=== PATIENT | female | born 1935 | race Caucasian/White ===

== ENCOUNTER 2023-12-29 13:35 | Emergency (ER) | payer MEDICARE ==
[2023-12-29 13:52] VITALS: TEMP 98
--- NOTE | 2023-12-29 13:53 | ED ---
Fall HPI - General Source: patient, RN notes reviewed Mode of arrival: wheelchair Limitations: no limitations <Tarun Rubio - Last Filed: 12/29/23 13:52> - General Source: patient, RN notes reviewed Mode of arrival: wheelchair Limitations: no limitations - History of Present Illness MD Complaint: fall <Sanaz Zhang - Last Filed: 12/29/23 21:52> - General Chief Complaint: Fall Stated Complaint: fall/head injury/on blood thinners Time Seen by Provider: 12/29/23 13:52 - History of Present Illness Initial Comments: 88-year-old female presents emergency department complaint of a head injury. Patient states she is on blood thinners. Patient states she fell forward striking her head. Patient has a hematoma. No loss conscious. Patient denies any neck pain no other extremity injuries. (Tarun Rubio) This is an 88-year-old female who presents to the emergency department for a head injury. States that she tripped going up a curb, and fell face first, hitting her head. Reports a bump to the side of the front of her head. Denies any loss consciousness. She is on warfarin. Denies sustaining any other injuries. Denies any nausea or headaches at this time. (Sanaz Zhang) - Related Data Allergies Allergy/AdvReac Type Severity Reaction Status Date / Time No Known Allergies Allergy Verified 12/29/23 13:48 Review of Systems ROS Other: All systems not noted in ROS Statement are negative. <Tarun Rubio - Last Filed: 12/29/23 13:52> ROS Other: All systems not noted in ROS Statement are negative. <Sanaz Zhang - Last Filed: 12/29/23 21:52> ROS Statement: Those systems with pertinent positive or pertinent negative responses have been documented in the HPI. Past Medical History Past Medical History: Coronary Artery Disease (CAD), CVA/TIA, Diabetes Mellitus, Hypertension History of Any Multi-Drug Resistant Organisms: None Reported Past Surgical History: No Surgical Hx Reported Smoking Status: Never smoker Past Alcohol Use History: None Reported Past Drug Use History: None Reported <Tarun Rubio - Last Filed: 12/29/23 13:52> General Exam Limitations: no limitations <Tarun Rubio - Last Filed: 12/29/23 13:52> Limitations: no limitations General appearance: alert, in no apparent distress Head exam: Present: other (Hematoma to the right side of the forehead) Respiratory exam: Present: normal lung sounds bilaterally. Absent: respiratory distress, wheezes, rales, rhonchi, stridor Cardiovascular Exam: Present: regular rate, normal rhythm, normal heart sounds. Absent: systolic murmur, diastolic murmur, rubs, gallop, clicks Neurological exam: Present: alert, oriented X3, CN II-XII intact Psychiatric exam: Present: normal affect, normal mood <Sanaz Zhang - Last Filed: 12/29/23 21:52> - General Exam Comments Initial Comments: Visual Physical Exam Vital signs reviewed General: Well-appearing, nontoxic, no acute distress. Head: Normocephalic, hematoma noted ic Eyes: PERRLA, EOMI ENT: Airway patent Chest: Nonlabored breathing Skin: No visual rash, normal skin tone Neuro: Alert and oriented 3 Musculoskeletal: No gross abnormalities (Tarun Rubio) Course Vital Signs 12/29/23 12/29/23 13:46 16:17 Temperature 98 F Pulse Rate 83 62 Respiratory 20 16 Rate Blood Pressure 199/45 217/79 O2 Sat by Pulse 95 98 Oximetry Medical Decision Making <Tarun Rubio - Last Filed: 12/29/23 13:52> - Radiology Data Radiology results: report reviewed, image reviewed <Sanaz Zhang - Last Filed: 12/29/23 21:52> - Medical Decision Making I completed the quick note portion of this chart signed Tarun Rubio PA-C (Tarun Rubio) This is an 88-year-old female who presents to the emergency department for a head injury. Was pt. sent in by a medical professional or institution? @ -No Did you speak to anyone other than the patient for history? @ -No Did you review nursing and triage notes? @ -Yes, and I agree, it is accurate with regards to the patient's symptoms. Were old charts reviewed? @ -No Differential Diagnosis? @ -Differential Diagnosis Head Injury: Contusion, hematoma, intracranial hemorrhage, skull fracture, whiplash, concussion, this is not meant to be an all-inclusive list. EKG interpreted by me (3pts min.)? @ -Not obtained X-rays interpreted by me (1pt min.)? @ -Not obtained CT interpreted by me (1pt min.)? @ -Computed tomography scan of the brain and c-spine obtained. My interpretation identifies no evidence of an acute intracranial hemorrhage, skull fracture, or cervical spine fracture. U/S interpreted by me (1pt. min.)? @ -Not obtained What testing was considered but not performed? (CT, X-rays, U/S, labs)? Why? @ -None What meds were considered but not given? Why? @ -None Did you discuss the management of the patient with other professionals? @ -No Did you reconcile home meds? @ -No Was smoking cessation discussed for >3mins.? @ -No Was critical care preformed (if so, how long)? @ -No Were there social determinants of health that impacted care today? How? (Homelessness, low income, unemployed, alcoholism, drug addiction, trans portation, low edu. Level, literacy, decrease access to med. care, long-term, rehab)? @ -No Was there de-escalation of care discussed even if they declined? (Discuss DNR or withdrawal of care, Hospice)? @ -No What co-morbidities impacted this encounter? (DM, HTN, Smoking, COPD, CAD, Cancer, CVA, Hep., AIDS, mental health diagnosis, sleep apnea, morbid obesity)? @ -CAD, Hx CVA, DM, HTN Was patient admitted / discharged? @ -Discharged. Computed tomography scan of the brain and C-spine obtained revealing no acute process. Patient denied the need for any pain medication in the emergency department. Advised Tylenol as needed for pain relief. Patient discharged home in stable condition. Undiagnosed new problem with uncertain prognosis? @ -None Drug Therapy requiring intensive monitoring for toxicity (Heparin, Nitro, Insulin, Cardizem)? @ -None Were any procedures done? @ -None Diagnosis/symptom? @ -Fall, head injury Acute, or Chronic, or Acute on Chronic? @ -Acute Uncomplicated (without systemic symptoms) or Complicated (systemic symptoms)? @ -Uncomplicated Side effects of treatment? @ -None Exacerbation, Progression, or Severe Exacerbation] @ -Not applicable Poses a threat to life or bodily function? @ -No Return precautions reviewed in depth, the patient is instructed to return to the emergency department with any new, worsening, or concerning symptoms. Patient verbalized understanding. This case was discussed in detail with the attending ED physician, Dr. Kwong Presentation, findings, and treatment plan discussed in detail as well. (Sanaz Zhang) Disposition <Tarun Rubio - Last Filed: 12/29/23 13:52> Is patient prescribed a controlled substance at d/c from ED?: No Time of Disposition: 16:09 <Sanaz Zhang - Last Filed: 12/29/23 21:52> Clinical Impression: Fall, Hematoma Disposition: HOME SELF-CARE Instructions (If sedation given, give patient instructions): Fall Prevention for Older Adults (ED), Hematoma (ED) Additional Instructions: Return to the emergency department with any new, worsening, or concerning symptoms. Take Tylenol as needed for pain relief. Follow up with your primary care provider in 1-2 days. Referrals: Raghu Hewitt DO [Primary Care Provider] - 1-2 days
--- NOTE | 2023-12-29 14:49 | CT ---
EXAMINATION TYPE: CT brain cspine wo con DATE OF EXAM: 12/29/2023 COMPARISON: 01/13/2013 HISTORY: Fall, frontal lobe contusion and swelling CT DLP: 1424.8 mGycm, Automated exposure control for dose reduction was used. CONTRAST: Patient injected with mL of . CT of the brain is performed utilizing 3 mm thick sections through the posterior fossa and 3 mm thick sections through the remaining calvarium. Study is performed within 24 hours of arrival to the hospital. No abnormal hyperdensity is present to suggest an acute intracranial hemorrhage. No mass lesion is evident. No acute infarcts are evident. Periventricular white matter hypodensity is present, likely on the ba sis of chronic white matter ischemic changes. This is greater at the right occipital horn lateral barak tricle which was present previously. Old subcortical infarct could be considered. Some subcortical hy podensity may also be in the posterior left frontal lobe. Ventricles and sulci are prominent for the patient age. There is some soft tissue swelling over the left frontal region. Paranasal sinuses and mastoid air cells within the [id number] are clear. IMPRESSIONS: 1. Atrophy with chronic white matter appearing changes. If additional evaluation is required, MRI wou ld be recommended. 2. Soft tissue swelling right frontal region CT cervical spine. COMPARISON: None CT of the cervical spine is performed in the axial plane at 2 mm thick sections. Reconstructed image s in the coronal, and sagittal plane are reviewed on the computer. No acute fractures are evident. 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 Vertebral body alignment is normal. There is loss of disc height C5-6 C6-7. Vertebral body heights are preserved. No spinal canal stenosis is evident. Bilateral foraminal stenosis at C5-6 is present due to uncovertebral joint hypertrophy. IMPRESSION: 1. No acute osseous abnormality cervical spine. 2. Foraminal stenosis bilaterally at C5-6.
[2023-12-29 16:37] VITALS: BP 217/79; PULSE 62; RESP 16
== END 2023-12-29 16:17 | disposition home or self-care (01) ==
LOC: EC 13:35
DX: S00.93XA Contusion of unspecified part of head, initial encounter (principal); E11.9 Type 2 diabetes mellitus without complications; I10 Essential (primary) hypertension; I25.10 Atherosclerotic heart disease of native coronary artery without angina pectoris; W01.0XXA Fall on same level from slipping, tripping and stumbling without subsequent striking against object, initial encounter
CPT/HCPCS: 70450; 72125; 99284

== ENCOUNTER 2024-01-12 23:36 | Emergency (ER) | payer MEDICARE ==
[2024-01-13 00:20] VITALS: TEMP 97.1
--- NOTE | 2024-01-13 00:23 | ED ---
Dizziness HPI - General Source: patient Mode of arrival: EMS Limitations: no limitations <Jey Granados - Last Filed: 01/13/24 00:23> - History of Present Illness MD Complaint: dizziness, difficulty walking -: hour(s) Timing: sudden onset Description: sense of movement, difficulty walking History of Same: No History of Trauma: No Severity: moderate Improves With: remaining still Worsens With: movement Associated Symptoms: other <Reg Bailey - Last Filed: 01/30/24 07:56> - General Chief Complaint: Dizziness Stated Complaint: PREVIOUS HEAD INJURY, DIZZY Time Seen by Provider: 01/13/24 00:22 - History of Present Illness Initial Comments: 88-year-old female presented to the ED with a chief complaint of dizziness. Patient states she was at rest earlier tonight and notes she turned her head started to experience some dizziness. Also notes headache with this as well. (Jey Granados) - Related Data Previous Rx's Medication Instructions Recorded Meclizine [Antivert] 25 mg PO TID PRN #15 tab 01/13/24 Allergies Allergy/AdvReac Type Severity Reaction Status Date / Time No Known Allergies Allergy Verified 12/29/23 13:48 Review of Systems ROS Other: All systems not noted in ROS Statement are negative. <Jey Granados - Last Filed: 01/13/24 00:23> ROS Other: All systems not noted in ROS Statement are negative. Constitutional: Denies: fever, chills Eyes: Denies: eye pain, vision change ENT: Denies: ear pain, epistaxis, congestion Respiratory: Denies: cough, dyspnea Cardiovascular: Denies: chest pain, palpitations, syncope Gastrointestinal: Denies: abdominal pain, vomiting, diarrhea Genitourinary: Denies: dysuria, hematuria Musculoskeletal: Denies: back pain Skin: Denies: rash Neurological: Reports: headache, vertigo. Denies: weakness, numbness, paresthesias, confusion <Reg Bailey - Last Filed: 01/30/24 07:56> ROS Statement: Those systems with pertinent positive or pertinent negative responses have been documented in the HPI. Past Medical History Past Medical History: Coronary Artery Disease (CAD), CVA/TIA, Diabetes Mellitus, Hypertension History of Any Multi-Drug Resistant Organisms: None Reported Past Surgical History: No Surgical Hx Reported Smoking Status: Never smoker Past Alcohol Use History: None Reported Past Drug Use History: None Reported <Jey Granados - Last Filed: 01/13/24 00:23> General Exam Limitations: no limitations <Jey Granados - Last Filed: 01/13/24 00:23> Limitations: no limitations General appearance: alert, in no apparent distress Head exam: Present: atraumatic, normocephalic Eye exam: Present: normal appearance, PERRL, EOMI, nystagmus. Absent: scleral icterus, conjunctival injection ENT exam: Present: normal oropharynx, TM's normal bilaterally Neck exam: Present: normal inspection, full ROM. Absent: meningismus Respiratory exam: Present: normal lung sounds bilaterally. Absent: respiratory distress, wheezes, rales, rhonchi, stridor, accessory muscle use Cardiovascular Exam: Present: regular rate, normal rhythm, normal heart sounds. Absent: systolic murmur, diastolic murmur, rubs, gallop GI/Abdominal exam: Present: soft. Absent: distended, tenderness, guarding, rebound, rigid, mass Extremities exam: Present: normal inspection, normal capillary refill. Absent: pedal edema, calf tenderness Back exam: Present: normal inspection. Absent: CVA tenderness (R), CVA tenderness (L) Neurological exam: Present: alert, oriented X3, CN II-XII intact. Absent: motor sensory deficit Skin exam: Present: warm, dry, intact, normal color. Absent: rash <Rge Bailey - Last Filed: 01/30/24 07:56> - General Exam Comments Initial Comments: Visual Physical Exam Vital signs reviewed General: Well-appearing, nontoxic, no acute distress. Head: Normocephalic, atraumatic Eyes: PERRLA, EOMI ENT: Airway patent Chest: Nonlabored breathing Skin: No visual rash, normal skin tone Neuro: Alert and oriented 3 Musculoskeletal: No gross abnormalities (Jey Granados) Course Vital Signs 01/13/24 01/13/24 01/13/24 00:15 02:49 04:12 Temperature 97.1 F L Pulse Rate 56 L 54 L 57 L Respiratory 16 18 18 Rate Blood Pressure 173/65 200/88 175/75 O2 Sat by Pulse 96 97 97 Oximetry Medical Decision Making <Jey Granados - Last Filed: 01/13/24 00:23> - Lab Data Result diagrams: 01/13/24 01:18 01/13/24 01:18 <Reg Bailey - Last Filed: 01/30/24 07:56> - Medical Decision Making Quicknote portion performed. Signed Jey Granados PA-C (Jey Granados) The patient had CT of the brain that I interpreted as showing some right occipital encephalomalacia. No acute bony injury. No intracranial hemorrhage. The patient had CT angiography of the brain that I interpreted as showing no arterial occlusion Was pt. sent in by a medical professional or institution (, PA, WORD PROCESSING MACHINE OPERATOR, urgent care, hospital, or care home...) When possible be specific @ -[No] Did you speak to anyone other than the patient for history (EMS, parent, family, police, friend...)? What history was obtained from this source @ -[No] Did you review nursing and triage notes (agree or disagree)? Why? @ -[I reviewed and agree with nursing and triage notes] Were old charts reviewed (outside hosp., previous admission, EMS record, old EKG, old radiological studies, urgent care reports/EKG's, care home records)? Report findings @ -[No old charts were reviewed] Differential Diagnosis (chest pain, altered mental status, abdominal pain women, abdominal pain men, vaginal bleeding, weakness, fever, dyspnea, syncope, headache, dizziness, GI bleed, back pain, seizure, CVA, palpatations, mental health, musculoskeletal)? @ -[Differential Dizziness: Benign paroxysmal positional Vertigo, Menieres disease, otitis media, acoustic neuroma, vertebrobasilar insufficiency, cerebellar stroke, encephalitis, hypovolemic, arrhythmia, coronary artery syndrome, anemia, this is not meant to be an all-inclusive list EKG interpreted by me (3pts min.). @ -[I interpreted as above] X-rays interpreted by me (1pt min.). @ -[None done] CT interpreted by me (1pt min.). @ -[I interpreted as above U/S interpreted by me (1pt. min.). @ -[None done] What testing was considered but not performed or refused? (CT, X-rays, U/S, labs)? Why? @ -[None] What meds were considered but not given or refused? Why? @ -[None] Did you discuss the management of the patient with other professionals (professionals i.e. , PA, WORD PROCESSING MACHINE OPERATOR, lab, RT, psych nurse, high school social studies teacher, small arms artillery repairer, teacher, protocol officer, rn case manager hospice)? Give summary @ -[No] Was smoking cessation discussed for >3mins.? @ -[No] Was critical care preformed (if so, how long)? @ -[No] Were there social determinants of health that impacted care today? How? (Homelessness, low income, unemployed, alcoholism, drug addiction, transportation, low edu. Level, literacy, decrease access to med. care, residential, rehab)? @ -[No] Was there de-escalation of care discussed even if they declined (Discuss DNR or withdrawal of care, Hospice)? DNR status @ -[No] What co-morbidities impacted this encounter? (DM, HTN, Smoking, COPD, CAD, Cancer, CVA, ARF, Chemo, Hep., AIDS, mental health diagnosis, sleep apnea, morbid obesity)? @ -[None] Was patient admitted / discharged? Hospital course, mention meds given and route, prescriptions, significant lab abnormalities, going to OR and other pertinent info. @ -[Patient is an 88-year-old woman presenting with acute onset of vertigo. She did have workup that does not show any intracranial mass or arterial obstruction. She is feeling better with medication and would like to go home at this point. We discussed appropriate further care and follow-up as well as return parameters. Undiagnosed new problem with uncertain prognosis? @ -[No] Drug Therapy requiring intensive monitoring for toxicity (Heparin, Nitro, Insulin, Cardizem)? @ -[No] Were any procedures done? @ -[No] Diagnosis/symptom? @ -[Acute vertigo Acute, or Chronic, or Acute on Chronic? @ -[Acute Uncomplicated (without systemic symptoms) or Complicated (systemic symptoms)? @ -[uncomplicated Side effects of treatment? @ -[No] Exacerbation, Progression, or Severe Exacerbation? @ -[No] Poses a threat to life or bodily function? How? (Chest pain, [place], MA, pneumonia, PE, COPD, DKA, ARF, appy, cholecystitis, CVA, Diverticulitis, Homicidal, Suicidal, threat to staff... and all critical care pts) @ -[No] (Reg Bailey) - Lab Data Lab Results 01/13/24 01/13/24 01/13/24 Range/Units 01:18 01:18 01:18 WBC 9.3 (3.8-10.6) k/uL RBC 4.50 (3.80-5.40) m/uL Hgb 13.6 (11.4-16.0) gm/dL Hct 41.5 (34.0-46.0) % MCV 92.1 (80.0-100.0) fL MCH 30.3 (25.0-35.0) pg MCHC 32.9 (31.0-37.0) g/dL RDW 14.1 (11.5-15.5) % Plt Count 194 (150-450) k/uL MPV 9.7 Neutrophils % 65 % Lymphocytes % 23 % Monocytes % 7 % Eosinophils % 3 % Basophils % 0 % Neutrophils # 6.1 (1.3-7.7) k/uL Lymphocytes # 2.1 (1.0-4.8) k/uL Monocytes # 0.7 (0-1.0) k/uL Eosinophils # 0.3 (0-0.7) k/uL Basophils # 0.0 (0-0.2) k/uL PT 26.0 H (10.0-12.5) sec INR 2.6 H (<1.2) APTT 33.5 H (22.0-30.0) sec Sodium 141 (137-145) mmol/L Potassium 4.0 (3.5-5.1) mmol/L Chloride 110 H (98-107) mmol/L Carbon Dioxide 24 (22-30) mmol/L Anion Gap 7 mmol/L BUN 24 H (7-17) mg/dL Creatinine 0.81 (0.52-1.04) mg/dL Est GFR (CKD-EPI)AfAm 76 (>60 ml/min/1.73 sqM) Est GFR (CKD-EPI)NonAf 66 (>60 ml/min/1.73 sqM) Glucose 123 H (74-99) mg/dL Calcium 9.4 (8.4-10.2) mg/dL Magnesium 1.6 (1.6-2.3) mg/dL Total Bilirubin 0.5 (0.2-1.3) mg/dL AST 29 (14-36) U/L ALT 16 (4-34) U/L Alkaline Phosphatase 111 (38-126) U/L Troponin I (0.000-0.034) ng/mL Total Protein 6.6 (6.3-8.2) g/dL Albumin 4.2 (3.5-5.0) g/dL 01/13/24 Range/Units 01:18 WBC (3.8-10.6) k/uL RBC (3.80-5.40) m/uL Hgb (11.4-16.0) gm/dL Hct (34.0-46.0) % MCV (80.0-100.0) fL MCH (25.0-35.0) pg MCHC (31.0-37.0) g/dL RDW (11.5-15.5) % Plt Count (150-450) k/uL MPV Neutrophils % % Lymphocytes % % Monocytes % % Eosinophils % % Basophils % % Neutrophils # (1.3-7.7) k/uL Lymphocytes # (1.0-4.8) k/uL Monocytes # (0-1.0) k/uL Eosinophils # (0-0.7) k/uL Basophils # (0-0.2) k/uL PT (10.0-12.5) sec INR (<1.2) APTT (22.0-30.0) sec Sodium (137-145) mmol/L Potassium (3.5-5.1) mmol/L Chloride (98-107) mmol/L Carbon Dioxide (22-30) mmol/L Anion Gap mmol/L BUN (7-17) mg/dL Creatinine (0.52-1.04) mg/dL Est GFR (CKD-EPI)AfAm (>60 ml/min/1.73 sqM) Est GFR (CKD-EPI)NonAf (>60 ml/min/1.73 sqM) Glucose (74-99) mg/dL Calcium (8.4-10.2) mg/dL Magnesium (1.6-2.3) mg/dL Total Bilirubin (0.2-1.3) mg/dL AST (14-36) U/L ALT (4-34) U/L Alkaline Phosphatase (38-126) U/L Troponin I <0.012 (0.000-0.034) ng/mL Total Protein (6.3-8.2) g/dL Albumin (3.5-5.0) g/dL Disposition <Jey Granados - Last Filed: 01/13/24 00:23> Is patient prescribed a controlled substance at d/c from ED?: No <Reg Bailey - Last Filed: 01/30/24 07:56> Clinical Impression: Vertigo Disposition: HOME SELF-CARE Condition: Good Instructions (If sedation given, give patient instructions): Vertigo (ED) Prescriptions: Meclizine [Antivert] 25 mg PO TID PRN #15 tab PRN Reason: Vertigo Referrals: Raghu Hewitt DO [Primary Care Provider] - 1-2 days
[2024-01-13 01:28] LABS: Basophils % (A) 0 %; Eosinophils # (A) 0.3 k/uL (0-0.7); Eosinophils % (A) 3 %; HCT 41.5 % (34.0-46.0); HGB 13.6 gm/dL (11.4-16.0); Lymphocytes # (A) 2.1 k/uL (1.0-4.8); Lymphocytes % (A) 23 %; MCH 30.3 pg (25.0-35.0); MCHC 32.9 g/dL (31.0-37.0); MCV 92.1 fL (80.0-100.0); Mean Platelet Volume 9.7; Monocytes # (A) 0.7 k/uL (0-1.0); Monocytes % (A) 7 %; Neutrophils # (A) 6.1 k/uL (1.3-7.7); Neutrophils % (A) 65 %; Platelet Count 194 k/uL (150-450); RDW 14.1 % (11.5-15.5); WBC 9.3 k/uL (3.8-10.6)
[2024-01-13 01:48] LABS: ALT 16 U/L (4-34); AST 29 U/L (14-36); African American GFR (CKD) 76 (>60 ml/min/1.73 sqM); Albumin 4.2 g/dL (3.5-5.0); Alkaline Phosphatase 111 U/L (38-126); Anion Gap 7 mmol/L; Blood Urea Nitrogen 24 mg/dL (7-17); Calcium 9.4 mg/dL (8.4-10.2); Carbon Dioxide 24 mmol/L (22-30); Chloride 110 mmol/L (98-107); Glucose 123 mg/dL (74-99); Magnesium 1.6 mg/dL (1.6-2.3); Non-African American GFR(CKD) 66 (>60 ml/min/1.73 sqM); Sodium 141 mmol/L (137-145); Total Bilirubin 0.5 mg/dL (0.2-1.3); Total Protein 6.6 g/dL (6.3-8.2)
[2024-01-13 01:49] LABS: INR 2.6 (<1.2); Partial Thromboplastin Time 33.5 sec (22.0-30.0)
--- NOTE | 2024-01-13 02:36 | CT ---
EXAM: CT Head Without Intravenous Contrast CLINICAL HISTORY: ITS.REASON CT Reason: SANDOVAL, dizziness TECHNIQUE: Axial computed tomography images of the head/brain without intravenous contrast. CTDI is 48.8 mGy and DLP is 1084 mGy-cm. This CT exam was performed using one or more of the following dose reduction techniques: automated exposure control, adjustment of the mA and/or kV according to patient size, and/or use of iterative reconstruction technique. COMPARISON: Prior dated 12/29/2023 FINDINGS: Brain: Volume loss with prominent ventricles and sulci. Periventricular and subcortical white matter hypoattenuation likely reflects chronic small vessel disease. Stable focal low-density in the right occipital lobe likely chronic encephalomalacia. No hemorrhage. Ventricles: See above. Bones/joints: Unremarkable. No acute fracture. 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 Soft tissues: Unremarkable. Sinuses: Unremarkable as visualized. No acute sinusitis. Mastoid air cells: Unremarkable as visualized. No mastoid effusion. IMPRESSION: No acute findings in the head/brain.
[2024-01-13] MEDS: SODIUM CHLORIDE 0.9% 500 ML 500 ML IV STA (03:12)
[2024-01-13] MEDS: MECLIZINE 12.5 MG TAB PO STA (03:12)
[2024-01-13 03:15] VITALS: RESP 18
--- NOTE | 2024-01-13 03:45 | CT ---
EXAM: CT Angiography Head With Intravenous Contrast CLINICAL HISTORY: ITS.REASON CT Reason: SANDOVAL, dizziness TECHNIQUE: Axial computed tomographic angiography images of the head with intravenous contrast. CTDI is 21.35 mGy and DLP is 257.9 mGy-cm. This CT exam was performed using one or more of the following dose reduction techniques: automated exposure control, adjustment of the mA and/or kV according to patient size, and/or use of iterative reconstruction technique. MIP reconstructed images were created and reviewed. COMPARISON: head CT today 01/13/14 FINDINGS: Right internal carotid artery: No acute findings. Intracranial segment is patent with no significant stenosis. No aneurysm. Right anterior cerebral artery: Unremarkable. No occlusion or significant stenosis. No aneurysm. Right middle cerebral artery: Unremarkable. No occlusion or significant stenosis. No aneurysm. Right posterior cerebral artery: Unremarkable. No occlusion or significant stenosis. No aneurysm. Right vertebral artery: Unremarkable as visualized. Left internal carotid artery: No acute findings. Intracranial segment is patent with no significant stenosis. No aneurysm. Left anterior cerebral artery: Unremarkable. No occlusion or significant stenosis. No aneurysm. Left middle cerebral artery: Unremarkable. No occlusion or significant stenosis. No aneurysm. Left posterior cerebral artery: Unremarkable. No occlusion or significant stenosis. No aneurysm. Left vertebral artery: Unremarkable as visualized. Basilar artery: Unremarkable. No occlusion or significant stenosis. No aneurysm. IMPRESSION: No large vessel occlusion or severe stenosis. No aneurysm. EXAM: CT Angiography Neck With Intravenous Contrast CLINICAL HISTORY: ITS.REASON CT Reason: SANDOVAL, dizziness TECHNIQUE: Routine carotid CT angiography protocol was performed with intravenous contrast. NASCET criteria using the distal ICAs for comparison were used for evaluation of stenoses. CTDI is 21.35 mGy and DLP is 257.9 mGy-cm. This CT exam was performed using one or more of the following dose reduction techniques: automated exposure control, adjustment of the mA and/or kV according to patient size, and/or use of iterative reconstruction technique. MIP reconstructed images were created and reviewed. COMPARISON: None. FINDINGS: VASCULATURE: Right common carotid artery: Unremarkable. No occlusion or significant stenosis. No dissection. Right internal carotid artery: Atherosclerotic calcifications of the right carotid bulb. Extracranial segment is patent with no occlusion or significant stenosis. No dissection. Right external carotid artery: Unremarkable. No occlusion. Right vertebral artery: Unremarkable. No occlusion or significant stenosis. No dissection. Left common carotid artery: Unremarkable. No occlusion or significant stenosis. No dissection. Left internal carotid artery: Atherosclerotic calcifications of the left carotid bulb. Extracranial segment is patent with no occlusion or significant stenosis. No dissection. Left external carotid artery: Unremarkable. No occlusion. Left vertebral artery: Unremarkable. No occlusion or significant stenosis. No dissection. Aorta: Atherosclerotic calcifications of the aortic arch and proximal great vessels. NECK: Bones/joints: Unremarkable. No acute fracture. Soft tissues: Unremarkable. Lung apices: Clear. CAROTID STENOSIS REFERENCE USING NASCET CRITERIA: % ICA stenosis = (1 - narrowest ICA diameter/diameter of distal cervical ICA) x 100. Mild - <50% stenosis. Moderate - 50-69% stenosis. Severe - 70-94% stenosis. Near occlusion - 95-99% stenosis. Occluded - 100% stenosis. IMPRESSION: No acute findings in the arteries of the neck.
[2024-01-13 04:32] VITALS: BP 175/75; PULSE 57
== END 2024-01-13 04:35 | disposition home or self-care (01) ==
LOC: EC 23:36
DX: R42 Dizziness and giddiness (principal); E11.9 Type 2 diabetes mellitus without complications; I10 Essential (primary) hypertension; I25.10 Atherosclerotic heart disease of native coronary artery without angina pectoris; Z86.73 Personal history of transient ischemic attack (TIA), and cerebral infarction without residual deficits
CPT/HCPCS: 99284 ×2; 36415; 80053; 83735; 84484; 85025; 85610; 85730; 70496; 70450; 70498; Q9967; 93005

== ENCOUNTER → 2024-08-11 | Outpatient (CLI) | payer MEDICARE ==
--- NOTE | 2024-08-11 14:10 | US ---
EXAMINATION TYPE: US arterial LE single level DATE OF EXAM: 08/11/2024 1:46 PM CLINICAL INDICATION: Female, 89 years old with history of I73.9 PAD; Pt states right hip and thigh pa in, pt states recent home health visit showed abnormal circulation on test History of: Smoker: No Hypertension: Yes Diabetic: Yes Hyperlipidemia: Yes TIA/CVA: Yes Previous Vascular Surgery: No CAD: No [place]: No Vascular Ulcers: No Claudication: No Gangrene: No Doppler Waveforms: Right: Biphasic waveform involving the right femoral and popliteal arteries with monophasic waveform involving the right posterior tibial and dorsalis pedis arteries. Left: Biphasic waveforms involving the left femoral artery. Monophasic waveforms involving the left p opliteal, posterior tibial arteries. Biphasic waveforms involving the left dorsalis pedis artery. Right Brachial Pressure: 199 Left Brachial Pressure: 201 Ankle-Brachial Indices: Right: 1.0 Left: CNO (Vessel hardening > 1.4; Normal 0.9 - 1.4, Moderate 0.7 - 0.9, Severe 0.5-0.7) Toe Brachial Indices: Right: 0.5 Left: 0.6 IMPRESSION: 1. Normal right ankle brachial index however waveforms suggests at least mild distal peripheral arter ial vascular disease. 2. Cannot obtain left ankle-brachial index. Waveforms suggest at least mild peripheral arterial vascu lar disease. Consider further evaluation with CTA abdomen and pelvis runoff if there is continued clinical concern .
== END | disposition home or self-care (01) ==
LOC: RADUSWWP 13:07
PROVIDERS: ATTEND Family Medicine
DX: I73.9 Peripheral vascular disease, unspecified
CPT/HCPCS: 93922